=== PATIENT | male | born 1935 | race Caucasian/White ===

== ENCOUNTER 2016-07-31 08:26 | Emergency (ER) | payer MEDICARE ==
[~2016-07-31] VITALS: Ht 177.8 cm; Wt 111.0 kg
[~2016-07-31 08:26] MED LIST: ALB0.5V INH; ALBU25PO2 MC; ALBU8.5H6 IH; ALBU8.5H6 IN; BUDE10.2 IH; CITA10TA12 PO; EZET10TA5 PO; FEXO-95 PO; FRSM40T PO; FURO20TA4 PO; HYDR-3702 PO; HYDR-3754 PO; HYDR-3811 PO; HYDR-3881 PO; LEVO75TA PO; LRT10T PO; LSNP20T PO; LVT.05T PO; MONT10TA21 PO; NF-FLON16G NSEACH; OMEP20CA12 PO; OXYB5TAB9 PO; POTA10CA43 PO; PRAV80TA PO; SOLI10TA2 PO; STL80T PO; TIZA4CAP6 PO; WARF3TAB PO; WARF4TAB3 PO; WARF5TAB PO; WRF3T PO; [UNRECOGNIZED DRUG - OTHER] PO; provastatin PO
[2016-07-31] MEDS ORDERED: ONDANSETRON 4 MG (ZOFRAN) ORAL DISSOLVE TAB PO ONE (08:50)
[2016-07-31] MEDS ORDERED: HYDROmorphone 1 MG/ML (DILAUDID) SYRINGE IM ONE (08:50)
[2016-07-31] MEDS ORDERED: BISACODYL 10 MG SUPP (DULCOLAX) PR ONE (09:15)
[2016-07-31 09:18] LABS: MEAN CORPUSCULAR HEMOGLOBIN 29.4 PG (26.0-34.0); MEAN CORPUSCULAR HGB CONC 33.5 g/dL (31.0-37.0); MEAN CORPUSCULAR VOLUME 88 FL (80-100); MEAN PLATELET VOLUME 10.1 FL (6.0-9.5); PLATELET COUNT 207 10^3uL (150-450)
[2016-07-31 09:37] LABS: ALBUMIN 3.8 g/dL (3.4-5.0); CALCULATED IONIZED CALCIUM 3.9 mg/dL (3.8-4.6); TOTAL PROTEIN 7.5 g/dL (6.4-8.5)
[2016-07-31 09:43] LABS: BAND NEUTROPHILS % 0 % (0-6); LYMPHOCYTES # 2.5 #; SEGMENTED NEUTROPHILS % 67 % (51-67)
[2016-07-31 09:44] LABS: EOSINOPHILS % 2 % (0-4); MONOCYTES # 0.4 #; MONOCYTES % 4 % (3-11); POIKILOCYTOSIS SLIGHT; POLYCHROMASIA SLIGHT; RBC MORPH SEE REFERENCE (NORMAL); TOTAL CELLS COUNTED 100
--- NOTE | 2016-07-31 09:51 | NUR ---
PT STATES HE USES CPAP AT NIGHT WHEN THIS RN CHECKS ON HIM AFTER HE WAS SLEEPING. CL
[2016-07-31] MEDS ORDERED: LIDOCAINE PF 1% (XYLOCAINE) 2 ML VIAL INJ ONE (10:05)
[2016-07-31] MEDS ORDERED: cefTRIAXone 1 GM (ROCEPHIN) VIAL IM ONE (10:05)
[2016-07-31] MEDS ORDERED: methylPREDNISolone 125 MG (Solu-MEDROL) VIAL IM ONE (10:05)
--- NOTE | 2016-07-31 10:09 | Diagnostic Imaging Report ---
PROCEDURE: CT head without contrast. TECHNIQUE: Multiple contiguous axial images were obtained through the brain without the use of intravenous contrast. INDICATION: Headache. Comparison is made with prior examination from 01/15/14. FINDINGS: There is prominence of the ventricles and sulci. There is some unchanged encephalomalacia in the right frontal lobe likely reflecting prior CVA or trauma. There is no hydrocephalus. There is no midline shift. There is no intracranial mass, hemorrhage or extra-axial fluid collection. There is complete opacification of the maxillary sinuses. There is high density in both sinuses suspect for fungal infection. There is also almost complete opacification of the frontal sinuses and ethmoid air cells. There is opacification of the sphenoid sinus. The right sphenoid sinus is clear. Mastoid air cells are clear. IMPRESSION: Atrophy and mild chronic microvascular ischemic disease with unchanged right frontal lobe encephalomalacia. Pansinusitis Dictated by: Dictated on workstation # [id number]
[2016-07-31] MEDS ORDERED: FLUC200T PO (10:23)
[2016-07-31] MEDS ORDERED: METH4TAB27 PO (10:23)
[2016-07-31] MEDS ORDERED: AMOX1TAB12 PO (10:23)
[2016-07-31 17:49] VITALS: BP 126/64
[2016-08-15] MEDS ORDERED: PRAV80TA2 PO (15:00)
[2016-08-16] MEDS ORDERED: ISM60TCR PO (09:54)
== END 2016-07-31 10:47 | disposition home or self-care (01) ==
LOC: ED 08:27
DX: J01.40 Acute pansinusitis, unspecified (principal); Z87.891 Personal history of nicotine dependence; K59.00 Constipation, unspecified; Z86.711 Personal history of pulmonary embolism; Z79.01 Long term (current) use of anticoagulants
CPT/HCPCS: 36415; 70450; 80053; 85025; 85610; 85730; 86140; 96372; 99284; A9270; J0696; J1170; J2001; J2930

== ENCOUNTER → 2016-08-01 | Day surgery (SDC) | payer MEDICARE | END | disposition home or self-care (01) | LOC: ASC 10:01 | PROVIDERS: ATTEND Otolaryngology | DX: J32.0 Chronic maxillary sinusitis (principal); J32.1 Chronic frontal sinusitis; J32.2 Chronic ethmoidal sinusitis; J32.3 Chronic sphenoidal sinusitis ==

== ENCOUNTER → 2016-08-02 | Outpatient (CLI) | payer MEDICARE ==
[~2016-08-02] MED LIST changes: +AMOX1TAB12 PO; +FLUC200T PO; +ISM60TCR PO; +METH4TAB27 PO; +PRAV80TA2 PO
--- NOTE | 2016-08-02 14:47 | Diagnostic Imaging Report ---
PROCEDURE: CT sinuses without contrast TECHNIQUE: Multiple contiguous axial images were obtained through the sinuses without the use of intravenous contrast. Coronal and sagittal reformations were then performed. INDICATION: Chronic sinusitis, pressure, and pain. COMPARISON: Head CT, 07/31/2016; and sinus CT 07/02/2009. DISCUSSION: There is complete opacification of the right maxillary sinus. There is near-complete opacification of the left maxillary sinus with only a small focus of aeration near the ostiomeatal unit. Increased attenuation within the mucosal thickening within the bilateral maxillary sinuses is likely due to chronically inspissated secretions though an underlying fungal infection cannot be excluded, particularly if there is a history of diabetes. Air-fluid levels are noted within the bilateral frontal sinuses, consistent with acute sinusitis. The right sphenoid sinus is well aerated. Moderate mucosal thickening is noted within the left sphenoid sinus. The bilateral sphenoid ostia are patent. The bilateral ostiomeatal units and frontal drainage recesses appear occluded. There is near-complete opacification of the bilateral ethmoid air cells. Small right maryellen bullosa. The nasal septum is near midline. No acute osseous abnormality is identified. Senescent changes with chronic encephalomalacia within the right frontal lobe are noted within the visualized intracranial contents. Facial soft tissues are unremarkable. IMPRESSION: Acute/ chronic pansinusitis. There appears to be an acute component within the bilateral frontal sinuses with air-fluid levels present. Suspect inspissated secretions within the bilateral maxillary sinuses, less likely fungal infection. Dictated by: Dictated on workstation # [id number]
[2016-08-02 14:51] LABS: MEAN CORPUSCULAR HEMOGLOBIN 29.5 PG (26.0-34.0); MEAN PLATELET VOLUME 10.3 FL (6.0-9.5); WHITE BLOOD COUNT 17.3 10^3uL (4.0-11.0)
[2016-08-02 15:13] LABS: ALBUMIN 3.7 g/dL (3.4-5.0); ANION GAP 15.3 MEQ/L (3-15); CALCULATED IONIZED CALCIUM 4.2 mg/dL (3.8-4.6); TOTAL PROTEIN 6.9 g/dL (6.4-8.5)
== END ==
LOC: RAD 14:05
PROVIDERS: ATTEND Otolaryngology
DX: J32.0 Chronic maxillary sinusitis (principal); J32.1 Chronic frontal sinusitis; J32.2 Chronic ethmoidal sinusitis; Z51.81 Encounter for therapeutic drug level monitoring; Z79.01 Long term (current) use of anticoagulants
CPT/HCPCS: 36415; 70486; 80053; 82248; 85027; 85610; 85730

== ENCOUNTER → 2016-08-08 | Outpatient (CLI) | payer MEDICARE | LOC: RAD 14:35 | PROVIDERS: ATTEND Family Medicine | DX: Z01.818 Encounter for other preprocedural examination (principal); J32.0 Chronic maxillary sinusitis; I51.7 Cardiomegaly | CPT/HCPCS: 71020 ==

== ENCOUNTER 2016-08-16 09:05 | Day surgery (SDC) | payer MEDICARE ==
[2016-08-16] VITALS (9 sets, daily range): BP systolic 119–184; BP diastolic 63–105
[~2016-08-16] VITALS: Ht 177.8 cm; Wt 109.0 kg
[~2016-08-16 09:05] MED LIST changes: -ALB0.5V INH; -ALBU25PO2 MC; -ALBU8.5H6 IH; -ALBU8.5H6 IN; -AMOX1TAB12 PO; +BACITRACIN/POLYMYXIN OINTMENT 28.35 GM TUBE TOP ONE; -BUDE10.2 IH; -CITA10TA12 PO; -EZET10TA5 PO; -FEXO-95 PO; -FLUC200T PO; -FRSM40T PO; -FURO20TA4 PO; -HYDR-3702 PO; -HYDR-3754 PO; -HYDR-3811 PO; -HYDR-3881 PO; -ISM60TCR PO; +LACTATED RINGERS 1,000 ML IV SCH; -LEVO75TA PO; +LIDOCAINE/EPINEPHRINE 1% 1:100,000 (XYLOCAINE) 30 ML VIAL INJ ONE; -LRT10T PO; -LSNP20T PO; -LVT.05T PO; -METH4TAB27 PO; -MONT10TA21 PO; -NF-FLON16G NSEACH; -OMEP20CA12 PO; -OXYB5TAB9 PO; +OXYMETAZOLINE 0.05% NASAL SPRAY (AFRIN) 15 ML BTL ONE; -POTA10CA43 PO; -PRAV80TA PO; -PRAV80TA2 PO; +SODIUM CHLORIDE FLUSH 3 ML SYR IV PRN; -SOLI10TA2 PO; -STL80T PO; -TIZA4CAP6 PO; -WARF3TAB PO; -WARF4TAB3 PO; -WARF5TAB PO; -WRF3T PO; -[UNRECOGNIZED DRUG - OTHER] PO; -provastatin PO
[2016-08-16] MEDS: OXYMETAZOLINE 0.05% NASAL SPRAY (AFRIN) 15 ML BTL SCH ×3 (10:12→10:20)
--- NOTE | 2016-08-16 10:22 | NUR ---
PATIENT REPORTS TAKING PRN NITRO 2-3 DAYS AGO. PATIENT STATES THIS IS HIS NORMAL, AND HE TAKES HIS PRN NITRO USUALLY ABOUT 3 TIMES PER MONTH. THIS REPORTED TO KRISTA BERRY. NO NEW ORDERS RECEIVED.
[2016-08-16] MEDS ORDERED: MIDAZOLAM 2 MG/2 ML (VERSED) VIAL ONE (11:44)
[2016-08-16] MEDS ORDERED: ALFENTANIL 500 MCG/ML (ALFENTA) 5 ML AMP IV ONE (11:44)
[2016-08-16] MEDS ORDERED: ONDANSETRON 2 MG/ML (Z0FRAN) 2 ML VIAL ONE (12:11)
[2016-08-16] MEDS ORDERED: PROPOFOL 20 ML IV ONE (12:11)
[2016-08-16] MEDS ORDERED: OXYMETAZOLINE 0.05% NASAL SPRAY (AFRIN) 15 ML BTL ONE (12:39)
[2016-08-16] MEDS ORDERED: DEXAMETHASONE 10 MG/ML (DECADRON) VIAL ONE (13:12)
[2016-08-16] MEDS ORDERED: MEPERIDINE 25 MG/ML (DEMEROL) SYRINGE IV ONE (13:25)
[2016-08-16] MEDS ORDERED: ONDANSETRON 2 MG/ML (Z0FRAN) 2 ML VIAL IV PRN (13:40)
[2016-08-16] MEDS ORDERED: ACETAMINOPHEN 325 MG TAB (TYLENOL) PO PRN (13:40)
[2016-08-16] MEDS ORDERED: D5 1/2 NS W/KCL 20 MEQ/L 1,000 ML IV SCH (13:40)
[2016-08-16] MEDS ORDERED: HYDROcodone/APAP 5 MG/325 MG (NORCO) TAB PO PRN (13:40)
--- NOTE | 2016-08-16 13:45 | NUR ---
PACKING PULLED FROM BILATERAL NARES. PATIENT TOLERATES WELL.
--- NOTE | 2016-08-16 15:05 | NUR ---
O2 REMOVED FOR PATIENT TO DRESS. PATIENT DRESSES INDEPENDENTLY. PATIENT REMAINS 93-95% ON ROOM AIR WHILE AWAKE AND TALKING.
--- NOTE | 2016-08-16 16:03 | NUR ---
PATIENT AND SPOUSE EDUCATED ON IMPORTANCE OF WEARING CPAP WHEN GOING HOME. O2 SAT ON ROOM AIR 90-94% WHILE AWAKE. PATIENT 88-93% ON RA WHEN SLEEPING. PATIENT AND SPOUSE VERBALIZE UNDERSTANDING OF CPAP USE AFTER SURGERY.
[2016-08-16] MEDS ORDERED: HYPERTONIC SALINE IRRIGATION 1000 ML BTL IR SCH (21:00)
== END 2016-08-16 16:19 | disposition home or self-care (01) ==
LOC: ASC 09:05 → MERGE 10:00 → ASC 16:19
PROVIDERS: ATTEND Otolaryngology
DX: J32.0 Chronic maxillary sinusitis (principal); J32.1 Chronic frontal sinusitis; J32.2 Chronic ethmoidal sinusitis; J32.3 Chronic sphenoidal sinusitis; Z79.01 Long term (current) use of anticoagulants; J44.9 Chronic obstructive pulmonary disease, unspecified; J45.909 Unspecified asthma, uncomplicated; I10 Essential (primary) hypertension; I25.10 Atherosclerotic heart disease of native coronary artery without angina pectoris; E03.9 Hypothyroidism, unspecified; Z87.891 Personal history of nicotine dependence
CPT/HCPCS: 31254; 31256; 31296; 31297; 36415; 85610; 87070; 87102; 87205; A9270; J1100; J2175; J2250; J7120; 87077

== ENCOUNTER 2016-09-12 14:15 | Outpatient (RCR) | payer MEDICARE | END 2016-09-14 | disposition home or self-care (01) | LOC: PT 14:15 | PROVIDERS: ATTEND Family Medicine | DX: I25.10 Atherosclerotic heart disease of native coronary artery without angina pectoris (principal); R53.1 Weakness | CPT/HCPCS: 97001; 97110; 97112; 97164; G8978; G8979 ==

== ENCOUNTER → 2016-10-17 | Outpatient (CLI) | payer MEDICARE ==
[~2016-10-17] MED LIST changes: +ALB0.5V INH; +ALBU25PO2 MC; +ALBU8.5H6 IH; +ALBU8.5H6 IN; +AMOX1TAB12 PO; -BACITRACIN/POLYMYXIN OINTMENT 28.35 GM TUBE TOP ONE; +BUDE10.2 IH; +CITA10TA12 PO; +EZET10TA5 PO; +FEXO-95 PO; +FLUC200T PO; +FRSM40T PO; +FURO20TA4 PO; +HYDR-3702 PO; +HYDR-3754 PO; +HYDR-3811 PO; +HYDR-3881 PO; +ISM60TCR PO; -LACTATED RINGERS 1,000 ML IV SCH; +LEVO75TA PO; -LIDOCAINE/EPINEPHRINE 1% 1:100,000 (XYLOCAINE) 30 ML VIAL INJ ONE; +LRT10T PO; +LSNP20T PO; +LVT.05T PO; +METH4TAB27 PO; +MONT10TA21 PO; +NF-FLON16G NSEACH; +OMEP20CA12 PO; +OXYB5TAB9 PO; -OXYMETAZOLINE 0.05% NASAL SPRAY (AFRIN) 15 ML BTL ONE; +POTA10CA43 PO; +PRAV80TA PO; +PRAV80TA2 PO; -SODIUM CHLORIDE FLUSH 3 ML SYR IV PRN; +SOLI10TA2 PO; +STL80T PO; +TIZA4CAP6 PO; +WARF3TAB PO; +WARF4TAB3 PO; +WARF5TAB PO; +WRF3T PO; +[UNRECOGNIZED DRUG - OTHER] PO; +provastatin PO
--- NOTE | 2016-10-17 18:31 | Diagnostic Imaging Report ---
INDICATION: Knee pain. EXAMINATION: Frontal standing views of both knees are performed. A left lateral view is performed. Bilateral sunrise views are performed. AVAILABLE COMPARISONS: None. FINDINGS: A moderate-sized enthesophyte at the superior patella is present. Moderate narrowing of both lateral patellofemoral joints is present. There is slight lateral subluxation of the left patella. Mild medial joint space narrowing is present bilaterally. There is no chondrocalcinosis. No left-sided joint effusion. No osteolytic or osteoblastic lesion is identified. Surgical clips are seen at the medial aspect of the left thigh and calf compatible with previous vein harvest. IMPRESSION: 1. Degenerative changes of both knees as described. Dictated by: Dictated on workstation # [id number]
== END ==
LOC: RAD 13:46
PROVIDERS: ATTEND Orthopaedic Surgery
DX: M25.562 Pain in left knee (principal)
CPT/HCPCS: 73564

== ENCOUNTER 2016-12-01 14:00 | Outpatient (RCR) | payer MEDICARE | END 2016-12-12 12:01 | disposition home or self-care (01) | LOC: PT 14:00 | PROVIDERS: ATTEND Family Medicine | DX: I25.10 Atherosclerotic heart disease of native coronary artery without angina pectoris (principal); R53.1 Weakness | CPT/HCPCS: 97110; 97112; 97530; G8978; G8979; G8980 ==